=== PATIENT | male | born 1995 | race Caucasian/White ===

== ENCOUNTER 2016-04-22 21:46 | Emergency (ER) | payer SELFPAY ==
--- NOTE | 2016-04-22 22:04 | ER Document Report ---
ED Medical Screen (RME) - General Stated Complaint: RASH Time seen by provider: 22:01 Mode of Arrival: Ambulatory Notes: 20-year-old male presents to ED for tingling in his hair head pain and popping in his right ear states he also has pain and numbness down his left arm. He has previously been diagnosed with shingles in his when he was at [facility] in [place]. He had asthma as a child and was on steroids and mom states he had the worse case of chickenpox as a child. I have greeted and performed a rapid initial assessment of this patient. A comprehensive ED assessment and evaluation of the patient, analysis of test results and completion of medical decision making process will be conducted by an additional ED providers. - Related Data Allergies/Adverse Reactions: Sulfa (Sulfonamide Antibiotics) Allergy (Verified 10/05/12 03:02) Past Medical History Pulmonary Medical History: Reports: Hx Asthma Past Surgical History: Reports: Hx Myringotomy - TUBES IN EARS - Immunizations Immunizations up to date: Yes Hx Diphtheria, Pertussis, Tetanus Vaccination: Yes
--- NOTE | 2016-04-23 00:05 | ER Document Report ---
ED General - General Chief Complaint: Skin Problem Stated Complaint: SKIN PROBLEM Mode of Arrival: Ambulatory TRAVEL OUTSIDE OF THE [place] IN LAST 30 DAYS: No - HPI Patient complains to provider of: skin problem and multiple complaints Notes: Patient is coming in for a [employer] sensation in his scalp states she's had this before and was diagnosed with scalp neuralgia advisement. Patient states this is worse when he is outside sweating. Patient states that he is concerned that he may have shingles. Patient also complains of right ear popping left arm numbness and tingling nodules on either side of his neck anxiety and a sore throat. Otherwise patient denies fevers chills nausea vomiting diarrhea recent travel recent antibiotic use. - Related Data Allergies/Adverse Reactions: polymyxin B [From Polytrim] Allergy (Verified 04/22/16 22:02) Sulfa (Sulfonamide Antibiotics) Allergy (Verified 04/22/16 22:02) trimethoprim [From Polytrim] Allergy (Verified 04/22/16 22:02) Past Medical History - Social History Smoking Status: Never Smoker Chew tobacco use (# tins/day): No Drug Abuse: None Family History: Reviewed & Not Pertinent Patient has suicidal ideation: No Patient has homicidal ideation: No Pulmonary Medical History: Reports: Hx Asthma Renal/ Medical History: Denies: Hx Peritoneal Dialysis Past Surgical History: Reports: Hx Myringotomy - TUBES IN EARS - Immunizations Immunizations up to date: Yes Hx Diphtheria, Pertussis, Tetanus Vaccination: Yes Review of Systems - Review of Systems Constitutional: Other - Please see history of present illness multiple complaints EENT: No symptoms reported Cardiovascular: No symptoms reported Respiratory: No symptoms reported Gastrointestinal: No symptoms reported Genitourinary: No symptoms reported Male Genitourinary: No symptoms reported Musculoskeletal: No symptoms reported Skin: No symptoms reported Hematologic/Lymphatic: No symptoms reported Neurological/Psychological: No symptoms reported Physical Exam - Vital signs Vitals: Temp Pulse Resp BP Pulse Ox 98.1 F 76 18 155/85 H 98 04/22/16 21:51 04/22/16 21:51 04/22/16 21:51 04/22/16 21:51 04/22/16 21:51 Interpretation: Normal - General General appearance: Appears well, Alert - HEENT Head: Normocephalic, Atraumatic Eyes: Normal Conjunctiva: Normal Cornea: Normal Extraocular movements intact: Yes Eyelashes: Normal Pupils: PERRL Ears: Normal External canal: Normal Sinus: Normal Nasal: Normal Mouth/Lips: Normal Pharynx: Normal Neck: Normal - Respiratory Respiratory status: No respiratory distress Chest status: Nontender Breath sounds: Normal Chest palpation: Normal - Cardiovascular Rhythm: Regular Heart sounds: Normal auscultation Murmur: No - Abdominal Inspection: Normal Distension: No distension Bowel sounds: Normal Tenderness: Nontender Organomegaly: No organomegaly - Back Back: Normal, Nontender - Extremities General upper extremity: Normal inspection, Nontender, Normal color, Normal ROM , Normal temperature General lower extremity: Normal inspection, Nontender, Normal color, Normal ROM , Normal temperature, Normal weight bearing. No: Dewayne's sign - Neurological Neuro grossly intact: Yes Cognition: Normal Orientation: AAOx4 Ta Coma Scale Eye Opening: Spontaneous Ta Coma Scale Verbal: Oriented Blue Eye Coma Scale Motor: Obeys Commands Blue Eye Coma Scale Total: 15 Speech: Normal Motor strength normal: LUE, RUE, LLE, RLE Sensory: Normal - Psychological Associated symptoms: Normal affect, Normal mood - Skin Skin Temperature: Warm Skin Moisture: Dry Skin Color: Normal Course - Re-evaluation Re-evalutation: 04/23/16 00:45 Patient's initial complaint of a numbness and tingling of his scalp especially when he is outside swelling is consistent with possible prickly heat recommend patient use a tar-based shampoo such as T-Gel. Patient then has multiple other complaints. All of which are found to be negative there is no nodules in the next is no signs of irritation of the throat no signs of infection the year patient has full use of his left arm with no sensory deficits. Splint to patient could be possible anxiety will give the patient Vistaril patient is grateful for his care will be discharged home - Vital Signs Vital signs: Temp Pulse Resp BP Pulse Ox 98.1 F 76 18 155/85 H 98 04/22/16 21:51 04/22/16 21:51 04/22/16 21:51 04/22/16 21:51 04/22/16 21:51 Discharge - Discharge Clinical Impression: Prickly heat, Anxiety Condition: Good Disposition: HOME, SELF-CARE Instructions: Anxiety ([facility]) Additional Instructions: Your sinus symptoms are consistent with possible prickly heat. I recommend switching shampoo to a tar-based shampoo such as such as T-Gel. He may also use the storebrand T-Gel version original strength. Some of the or other complaints possibly due to anxiety due to her symptoms. I will also prescribe you Vistaril that will also help out with your prickly heat. I would recommend following up with a primary care physician. Return to the ER symptoms worsen Prescriptions: [place] Tar [T-Gel] 1 applic TP DAILY #1 shampoo Hydroxyzine Pamoate [Vistaril 25 mg Capsule] 25 mg PO DAILY #30 capsule
[2016-04-23] MEDS ORDERED: HYDROXYZINE PAMOATE 25 MG CAPSULE #4 (ER DISP) PO SCH (00:15)
[2016-04-23 00:54] VITALS: BP 135/82
== END 2016-04-23 00:30 | disposition home or self-care (01) ==
LOC: ER 21:46
DX: F41.9 Anxiety disorder, unspecified (principal); L74.0 Miliaria rubra; Z88.2 Allergy status to sulfonamides; Z88.3 Allergy status to other anti-infective agents
CPT/HCPCS: 99283; J3490